=== PATIENT | female | born 1990 | race Caucasian/White ===

== ENCOUNTER → 2018-07-28 | Outpatient (CLI) | payer BC | LOC: RT 11:33 | PROVIDERS: ATTEND Internal Medicine Hematology & Oncology | DX: D49.59 Neoplasm of unspecified behavior of other genitourinary organ (principal) | CPT/HCPCS: 94060; 94726; 94729 ==

== ENCOUNTER → 2018-08-10 | Outpatient (CLI) | payer BC ==
[~2018-08-10] MED LIST: HOLD METFORMIN - RECEIVED CONTRAST 20 ML VIAL IV SCH; IOHEXOL 350 MG/ML 100 ML (OMNIPAQUE 350) VIAL IV ONE
--- NOTE | 2018-08-10 13:11 | Diagnostic Imaging Report ---
PROCEDURE: CT chest with contrast only. TECHNIQUE: Multiple contiguous axial images were obtained through the chest after administration of intravenous contrast. Auto Exposure Controls were utilized during the CT exam to meet ALARA standards for radiation dose reduction. INDICATION: Bacterial pneumonia. Study is performed for followup. COMPARISON: Correlation is made with CT chest from 07/20/2018. FINDINGS: No axillary lymphadenopathy is detected. No definite hilar or mediastinal lymphadenopathy is detected. No pericardial or pleural fluid is seen. Previously noted airspace infiltrates in right upper lobe and left lower lobe have resolved since prior CT consistent with resolving pneumonia. No new infiltrates or masses are seen. Upper abdomen is unremarkable. IMPRESSION: Resolution of right upper and left lower lobe pneumonia when compared with prior CT from 07/20/2018. Dictated by: Dictated on workstation # [id number]
== END ==
LOC: RAD 11:58
PROVIDERS: ATTEND Internal Medicine Hematology & Oncology
DX: J15.9 Unspecified bacterial pneumonia (principal); C80.1 Malignant (primary) neoplasm, unspecified
CPT/HCPCS: 71260

== ENCOUNTER 2018-08-14 12:17 | Outpatient (CLI) | payer BC ==
[~2018-08-14] VITALS: Ht 154.9 cm; Wt 90.3 kg
--- NOTE | 2018-08-14 14:44 | Diagnostic Imaging Report ---
INDICATION: post picc line placement COMPARISON: None. FINDINGS: Single frontal view of the chest demonstrates normal heart size and pulmonary vascularity. The lungs are well aerated and clear. No large pleural effusion or pneumothorax is seen. The visualized osseous structures show no acute abnormalities. Left upper extremity PICC line is seen with tip in the high SVC. IMPRESSION: 1. No acute cardiopulmonary process. 2. Left upper extremity PICC line with tip in the high SVC. Dictated by: Dictated on workstation # [id number]
--- NOTE | 2018-08-14 15:28 | Diagnostic Imaging Report ---
INDICATION: Followup PICC line. COMPARISON: Earlier same day. FINDINGS: Single frontal radiographic view of the chest was obtained and demonstrates interval advancement of left upper extremity PICC line. PICC line now appears to terminate within the right atrium. Cardiac silhouette and pulmonary vasculature are within normal limits. Lungs remain clear. There is no focal consolidation, large effusion, nor pneumothorax. Bony structures show no gross acute abnormalities. IMPRESSION: 1. Left upper extremity PICC line with tip now in the right atrium. Dictated by: Dictated on workstation # [id number]
[2018-08-14 15:45] VITALS: BP 136/82
== END 2018-08-14 15:50 | disposition home or self-care (01) ==
LOC: SDC 12:17
PROVIDERS: ATTEND Internal Medicine Hematology & Oncology
DX: C80.1 Malignant (primary) neoplasm, unspecified (principal)
CPT/HCPCS: 36569; 71045; 76937

== ENCOUNTER → 2018-09-20 | Outpatient (CLI) | payer BC | LOC: RT 16:04 | PROVIDERS: ATTEND Nurse Practitioner Adult Health | DX: C56.1 Malignant neoplasm of right ovary (principal); Z79.899 Other long term (current) drug therapy | CPT/HCPCS: 94060; 94726; 94729 ==

== ENCOUNTER 2018-10-03 18:10 | Emergency (ER) | payer BC ==
[~2018-10-03] VITALS: Ht 154.9 cm; Wt 83.9 kg
--- OUTSIDE RECORDS SUMMARY | 2018-10-03 18:16 | XMS REPORT ---
Author Author EUNICE PRINCE [facility] Address [address] [place] [address] Care Team Providers Care Jamb Cutter Name Role Phone ANGIEEUNICE Jamison Unavailable PROBLEMS Type Condition ICD9-CM Code VNU08-EW Code Onset Dates Condition Status SNOMED Code Problem Postop check V67.00 August, 0 488912378 Problem Encounter to discuss test results V65.49 Oct, 0 671754507 Problem Postop check Z09 August, 0 739496689 Problem Encounter to discuss test results Z71.2 Oct, 0 Problem Amenorrhea N91.2 Jun, 0 93561683 Problem Well woman exam with routine gynecological exam Z01.419 Oct, 0 [id number] Problem Morbid obesity with BMI of 40.0-44.9, adult 278.01 Jun, 0 577429591 Problem Other chronic pain G89.29 Active 98294394 Problem Morbid obesity with BMI of 40.0-44.9, adult E66.01 Jun, 0 709137993 Problem Acquired hypothyroidism E03.9 Active 978387923 Problem History of PCOS Z87.42 Jun, 0 87685139 Problem Amenorrhea 626.0 Jun, 0 33785512 Problem Well woman exam with routine gynecological exam V72.31 Oct, 0 769499796593418 Problem History of PCOS V13.29 Jun, 0 32065921 Problem Hyperprolactinemia E22.1 Active 101074209 ALLERGIES No Information ENCOUNTERS Encounter Location Date Diagnosis [address] [address] Jun, [address] [address] Jun, [address] [address] Jun, 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 [address] [address] Jun, [facility] [address] [address] May, [address] [address] May, Complex cyst of right ovary N83.291 ; Other chronic pain G89.29 and Pelvic and perineal pain R10.[address] [address] May, Pelvic pain R10.2 and Ovarian cyst N83.[address] [address] May, Pelvic pain R10.2 ; Ovarian cyst N83.209 ; Encounter to discuss test results Z71.2 and Hyperprolactinemia E22.[address] [address] May, [facility] [place] [address] [address] Apr, [place] [id number] [place] [address] Apr, [facility] [place] [id number] [address] Apr, [facility] [place] [id number] [address] Apr, [facility] [place] [id number] [address] Mar, [facility] [place] [address] [place] [id number] [place] [address] August, [facility] [place] [address] [address] August, IMMUNIZATIONS No Known Immunizations SOCIAL HISTORY Never Assessed REASON FOR VISIT Requests return call PLAN OF CARE VITAL SIGNS MEDICATIONS Unknown Medications RESULTS No Results PROCEDURES No Known procedures INSTRUCTIONS MEDICATIONS ADMINISTERED No Known Medications MEDICAL (GENERAL) HISTORY Type Description Date Medical History ovarian cysts Medical History elevated prolactin level Surgical History thyroidectomy Surgical History carpal tunnel release Surgical History dilatation and curettage Surgical History bone graph Surgical History colonoscopy Hospitalization History Surgery(s) only
--- OUTSIDE RECORDS SUMMARY | 2018-10-03 18:16 | XMS REPORT | Continuity of Care Document ---
Author Organization Unknown Address Unknown Allergies Active Description Code Type Severity Reaction Onset Reported/Identified Relationship to Patient Clinical Status Yes bismuth subsalicylate [id number] Drug Allergy Unknown N/A 08/08/2018 Yes oxycodone [id number] Drug Allergy Unknown N/A 08/08/2018 Medications There is no data. 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( 08/03/2018 LETICIA BANKS Ot D49.59 NEOPLASM OF UNSPECIFIED BEHAVIOR OF OTHE 08/08/2018 LETICIA BANKS Ot 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.0 BENIGN NEOPLASM OF RIGHT OVARY 08/08/2018 DARRENLETICIA Ot Z79.899 OTHER CODIFIER (CURRENT) DRUG THERAPY 08/08/2018 LETICIA BANKS N Ot Z80.1 FAMILY HISTORY OF MALIG NEOPLASM OF TRAC 08/08/2018 LETICIA BANKS N Ot Z80.6 FAMILY HISTORY OF LEUKEMIA 08/08/2018 LETICIA BANKS N Ot Z80.8 FAMILY HISTORY OF MALIGNANT NEOPLASM OF 08/08/2018 LETICIA BANKS N Ot Z90.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( 08/09/2018 LETICIA BANKS Ot D49.59 NEOPLASM OF UNSPECIFIED BEHAVIOR OF OTHE 08/10/2018 LETICIA BANKS Ot C80.1 MALIGNANT (PRIMARY) NEOPLASM, UNSPECIFIE 08/10/2018 LETICIA BANKS Ot J15.9 UNSPECIFIED BACTERIAL PNEUMONIA 08/14/2018 LETICIA BANKS N Ot C80.1 MALIGNANT (PRIMARY) NEOPLASM, UNSPECIFIE 08/15/2018 LETICIA BANKS Ot C80.1 MALIGNANT (PRIMARY) NEOPLASM, UNSPECIFIE 08/23/2018 LETICIA BANKS N Ot C80.1 MALIGNANT (PRIMARY) NEOPLASM, UNSPECIFIE 08/23/2018 LETICIA BANKS Ot J15.9 UNSPECIFIED BACTERIAL PNEUMONIA 09/25/2018 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 Results Test Result Range TSH w/ FREE T4 - 06/29/18 15:00 TSH 6.16 mIU/L NRG T4, FREE 1.0 ng/dL 0.8-1.8 T3 TOTAL - 06/29/18 15:00 T3, TOTAL 94 ng/dL 76-181 Encounters ACCT No. Visit Date/Time Discharge Status Pt. Type Provider Facility Loc./Unit Complaint [id number] 06/29/2018 13:30:00 06/29/2018 23:59:59 [facility] [id number] 06/29/2018 13:30:00 Document Registration [id number] 09/29/2018 09:50:00 09/29/2018 23:59:59 CLS Outpatient LETICIA BANKS [facility] ONC [id number] 09/20/2018 16:04:00 09/20/2018 23:59:59 CLS Outpatient YOKASTA WORKMAN [facility] RT GERM CELL TUMOR OF OVARY [id number] 08/14/2018 12:17:00 08/14/2018 15:50:00 DIS Outpatient LETICIA BANKS [facility] SDC IMMATURE TERATOMA [id number] 08/10/2018 11:58:00 08/10/2018 23:59:59 CLS Outpatient LETICIA BANKS [facility] RAD HX OF BACTERIAL PNEUMONIA,IMMATURE TERATOMA [id number] 07/28/2018 11:33:00 07/28/2018 23:59:59 CLS Outpatient LETICIA BANKS [facility] RT GERM CELL TUMOR OF OVARY
--- NOTE | 2018-10-03 18:28 | ED Chest Pain ---
General Stated Complaint: CHEST PAIN, SOB Source: patient, RN notes reviewed, old records Exam Limitations: no limitations History of Present Illness Date Seen by Provider: Oct 03, 2018 Time Seen by Provider: 18:28 Allergies and Home Medications Allergies Coded Allergies: bismuth subsalicylate (Verified Allergy, Unknown, 08/08/18) oxycodone (Verified Allergy, Unknown, 08/08/18) Past Jqhbgrn-Pnslcs-Ssofwi Hx Patient Social History Recent Foreign Travel: No Contact w/Someone Who Travel: No Physical Exam Vital Signs Vital Signs - First Documented 10/03/18 18:15 Temp 97.4 Pulse 93 Resp 18 B/P (MAP) 126/85 (99) Pulse Ox 99 O2 Delivery Room Air Capillary Refill : Height, Weight, BMI Height: 5'1.00" Weight: 199lbs. 0.0oz. 90.819969mh; BMI Method: Progress/Results/Core Measures Results/Orders Lab Results Laboratory Tests Test 10/03/18 18:40 10/03/18 19:05 Range/Units White Blood Count 5.3 4.3-11.0 10^3/uL Red Blood Count 3.33 L 4.35-5.85 10^6/uL Hemoglobin 10.4 L 11.5-16.0 G/DL Hematocrit 29 L 35-52 % Mean Corpuscular Volume 88 80-99 FL Mean Corpuscular Hemoglobin 31 25-34 PG Mean Corpuscular Hemoglobin Concent 36 32-36 G/DL Red Cell Distribution Width 15.7 H 10.0-14.5 % Platelet Count 288 130-400 10^3/uL Mean Platelet Volume 10.2 7.4-10.4 FL Neutrophils (%) (Auto) 52 42-75 % Lymphocytes (%) (Auto) 45 H 12-44 % Monocytes (%) (Auto) 2 0-12 % Eosinophils (%) (Auto) 0 0-10 % Basophils (%) (Auto) 1 0-10 % Neutrophils # (Auto) 2.7 1.8-7.8 X 10^3 Lymphocytes # (Auto) 2.4 1.0-4.0 X 10^3 Monocytes # (Auto) 0.1 0.0-1.0 X 10^3 Eosinophils # (Auto) 0.0 0.0-0.3 10^3/uL Basophils # (Auto) 0.1 0.0-0.1 10^3/uL Neutrophils % (Manual) 49 % Lymphocytes % (Manual) 37 % Monocytes % (Manual) 1 % Basophils % (Manual) 1 % Band Neutrophils 2 % Atypical Lymphocytes 10 % Hypochromasia 1+ Microcytosis 2+ D-Dimer 0.50 H 0.00-0.49 UG/ML Sodium Level 136 135-145 MMOL/L Potassium Level 2.9 L 3.6-5.0 MMOL/L Chloride Level 95 L 98-107 MMOL/L Carbon Dioxide Level 26 21-32 MMOL/L Anion Gap 15 H 5-14 MMOL/L Blood Urea Nitrogen 13 7-18 MG/DL Creatinine 0.75 0.60-1.30 MG/DL Estimat Glomerular Filtration Rate > 60 BUN/Creatinine Ratio 17 Glucose Level 126 H 70-105 MG/DL Calcium Level 9.0 8.5-10.1 MG/DL Corrected Calcium 8.8 8.5-10.1 MG/DL Magnesium Level 2.1 1.8-2.4 MG/DL Total Bilirubin 0.5 0.1-1.0 MG/DL Aspartate Amino Transf (AST/SGOT) 12 5-34 U/L Alanine Aminotransferase (ALT/SGPT) 12 0-55 U/L Alkaline Phosphatase 48 40-136 U/L Troponin T < 6 <=10 NG/L Pro-B-Type Natriuretic Peptide 23.5 <75.0 PG/ML Total Protein 7.0 6.4-8.2 GM/DL Albumin 4.2 3.2-4.5 GM/DL Group A Streptococcus Screen NEGATIVE NEGATIVE My Orders Orders - VOLODYMYR LEONE DO Cbc With Automated Diff (10/03/18 18:43) Comprehensive Metabolic Panel (10/03/18 18:43) Fibrin Degradation Products (10/03/18 18:43) Magnesium (10/03/18 18:43) Troponin T (10/03/18 18:43) Probnp Fs (10/03/18 18:43) Ekg Tracing (10/03/18 18:43) Rapid Strep A Screen (10/03/18 19:07) Thyroid Stimulating Hormone (10/03/18 19:17) Manual Differential (10/03/18 18:40) Ns Iv 1000 Ml (Sodium Chloride 0.9%) (10/03/18 20:15) Potassium Chloride (Tablet) (K Dur Table (10/03/18 20:15) Chest Pa/Lat (2 View) (10/03/18 20:08) Medications Given in ED Current Medications Medications Dose Ordered Sig/Consuelo Route Start Time Stop Time Status Last Admin Dose Admin Potassium Chloride 40 meq ONCE ONCE PO 10/03/18 20:15 10/03/18 20:16 DC 10/03/18 20:15 40 MEQ Vital Signs/I&O 10/03/18 18:15 Temp 97.4 Pulse 93 Resp 18 B/P (MAP) 126/85 (99) Pulse Ox 99 O2 Delivery Room Air Departure Impression Primary Impression: Non-cardiac chest pain Additional Impressions: Anxiety Hypokalemia Dehydration, mild Disposition: 01 HOME, SELF-CARE Condition: Improved Departure-Patient Inst. Referrals: SANNA SHAFER MD (PCP) Primary Care Physician AYDIN STARR CRNA (Family) Primary Care Physician Patient Instructions: High Potassium Diet, Anxiety, Adult (DC), Chest Pain That Is Not Caused by the Heart (DC) Scripts Clonazepam (Klonopin) 1 Mg Tablet 1 MG PO Q12H PRN for anxiety, #20 TAB 0 Refills Prov: VOLODYMYR LEONE DO 10/03/18 VOLODYMYR LEONE DO Oct 03, 2018 18:28
--- NOTE | 2018-10-03 19:15 | NUR ---
pt. reported that sometimes her thyroid causes the symptoms that she is having. this was reported to Doctor Adelita and a new order was placed.
--- NOTE | 2018-10-03 19:23 | NUR ---
pt. up to the bathroom to void.
[2018-10-03 19:26] LABS: ALANINE AMINOTRANSFERASE 12 U/L (0-55); ALKALINE PHOSPHATASE 48 U/L (40-136); BILIRUBIN,TOTAL 0.5 MG/DL (0.1-1.0); BUN/CREATININE RATIO 17; CARBON DIOXIDE 26 MMOL/L (21-32); CHLORIDE 95 MMOL/L (98-107); CREATININE SERUM 0.75 MG/DL (0.60-1.30); GFR ESTIMATED > 60; GLUCOSE 126 MG/DL (70-105); MAGNESIUM 2.1 MG/DL (1.8-2.4); POTASSIUM 2.9 MMOL/L (3.6-5.0); SODIUM 136 MMOL/L (135-145)
[2018-10-03 19:27] LABS: ALBUMIN 4.2 GM/DL (3.2-4.5)
[2018-10-03 19:28] LABS: HEMATOCRIT 29 % (35-52); HEMOGLOBIN 10.4 G/DL (11.5-16.0); LYMPHOCYTES % (AUTO) 45 % (12-44); MEAN CORPUSCULAR HEMOGLOBIN 31 PG (25-34); MEAN CORPUSCULAR HGB CONC 36 G/DL (32-36); MEAN CORPUSCULAR VOLUME 88 FL (80-99); MEAN PLATELET VOLUME 10.2 FL (7.4-10.4); PLATELET COUNT 288 10^3/uL (130-400); RED CELL DISTRIBUTION WIDTH 15.7 % (10.0-14.5); WHITE BLOOD COUNT 5.3 10^3/uL (4.3-11.0)
[2018-10-03 19:35] LABS: BASOPHILS % (AUTO) 1 % (0-10); EOSINOPHILS % (AUTO) 0 % (0-10); MONOCYTES % (AUTO) 2 % (0-12); NEUTROPHILS % (AUTO) 52 % (42-75)
[2018-10-03 19:36] LABS: BAND NEUTROPHILS 2 %; BASOPHILS # (AUTO) 0.1 10^3/uL (0.0-0.1); LYMPHOCYTES # (AUTO) 2.4 X 10^3 (1.0-4.0); LYMPHOCYTES % (MANUAL) 37 %; MONOCYTES # (AUTO) 0.1 X 10^3 (0.0-1.0); NEUTROPHILS # (AUTO) 2.7 X 10^3 (1.8-7.8); NEUTROPHILS % (MANUAL) 49 %
[2018-10-03 19:37] LABS: ATYPICAL LYMPHOCYTES 10 %; BASOPHILS % (MANUAL) 1 %; HYPOCHROMASIA 1+; MICROCYTOSIS 2+; MONOCYTES % (MANUAL) 1 %
[2018-10-03] MEDS ORDERED: KCL 20 MEQ TAB (K-DUR) PO ONE (20:15)
[2018-10-03] MEDS ORDERED: NS IV 1000 ML 1,000 ML IV SCH (20:15)
--- NOTE | 2018-10-03 20:33 | Diagnostic Imaging Report ---
INDICATION: Chest pain PA and lateral chest Heart size and pulmonary vascularity are normal. Lungs are clear. There are no effusions or pneumothoraces. IMPRESSION: Negative chest Dictated by: Dictated on workstation # [id number]
[2018-10-03] MEDS ORDERED: CLON1TAB PO (21:10)
[2018-10-03 21:12] VITALS: BP 116/75
== END 2018-10-03 21:20 | disposition home or self-care (01) ==
LOC: EDUNIT# 18:10 → ER FS 18:12
DX: R07.9 Chest pain, unspecified (principal); F41.9 Anxiety disorder, unspecified; E87.6 Hypokalemia; E86.0 Dehydration; Z88.5 Allergy status to narcotic agent; Z88.8 Allergy status to other drugs, medicaments and biological substances
CPT/HCPCS: 36415; 71046; 80053; 83735; 83880; 84443; 84484; 85007; 85027; 85379; 87430; 96360

== ENCOUNTER → 2018-10-17 | Outpatient (RCR) | payer BC, OTHER ==
[2018-08-14 16:59] LABS: BASOPHILS % (AUTO) 0 % (0-10); EOSINOPHILS # (AUTO) 0.3 10^3/uL (0.0-0.3); EOSINOPHILS % (AUTO) 2 % (0-10); HEMATOCRIT 36 % (35-52); HEMOGLOBIN 12.4 G/DL (11.5-16.0); LYMPHOCYTES # (AUTO) 2.7 X 10^3 (1.0-4.0); LYMPHOCYTES % (AUTO) 22 % (12-44); MEAN CORPUSCULAR HEMOGLOBIN 30 PG (25-34); MEAN CORPUSCULAR HGB CONC 34 G/DL (32-36); MEAN CORPUSCULAR VOLUME 87 FL (80-99); MEAN PLATELET VOLUME 10.5 FL (7.4-10.4); MONOCYTES # (AUTO) 0.7 X 10^3 (0.0-1.0); MONOCYTES % (AUTO) 6 % (0-12); NEUTROPHILS # (AUTO) 8.5 X 10^3 (1.8-7.8); NEUTROPHILS % (AUTO) 70 % (42-75); PLATELET COUNT 223 10^3/uL (130-400); RED CELL DISTRIBUTION WIDTH 12.9 % (10.0-14.5); WHITE BLOOD COUNT 12.2 10^3/uL (4.3-11.0)
[2018-08-14 17:08] LABS: ALANINE AMINOTRANSFERASE 11 U/L (0-55); ALBUMIN 3.6 GM/DL (3.2-4.5); ALKALINE PHOSPHATASE 62 U/L (40-136); BILIRUBIN,TOTAL 0.4 MG/DL (0.1-1.0); BUN/CREATININE RATIO 12; CARBON DIOXIDE 16 MMOL/L (21-32); CHLORIDE 111 MMOL/L (98-107); CREATININE SERUM 0.73 MG/DL (0.60-1.30); GFR ESTIMATED > 60; GLUCOSE 85 MG/DL (70-105); POTASSIUM 3.7 MMOL/L (3.6-5.0); SODIUM 138 MMOL/L (135-145); TOTAL PROTEIN 6.9 GM/DL (6.4-8.2)
--- NOTE | 2018-08-16 13:43 | Diagnostic Imaging Report ---
INDICATION: Post PICC line placement COMPARISON: 08/14/2018. FINDINGS: Single frontal view of the chest demonstrates normal heart size and pulmonary vascularity. The lungs are well aerated and clear. No large pleural effusion or pneumothorax is seen. The visualized osseous structures show no acute abnormalities. Left upper extremity PICC line is again identified with tip in the right atrium. IMPRESSION: 1. Right upper extremity PICC line with tip in the right atrium. 2. No acute cardiopulmonary process. Dictated by: Dictated on workstation # [id number]
[2018-08-17 12:17] LABS: BUN/CREATININE RATIO 19; CALCIUM 8.6 MG/DL (8.5-10.1); CARBON DIOXIDE 17 MMOL/L (21-32); CHLORIDE 109 MMOL/L (98-107); CREATININE SERUM 0.73 MG/DL (0.60-1.30); GFR ESTIMATED > 60; GLUCOSE 94 MG/DL (70-105); MAGNESIUM 1.9 MG/DL (1.8-2.4); POTASSIUM 3.7 MMOL/L (3.6-5.0); SODIUM 137 MMOL/L (135-145)
[2018-08-21 11:05] LABS: BASOPHILS # (AUTO) 0.1 10^3/uL (0.0-0.1); BASOPHILS % (AUTO) 1 % (0-10); EOSINOPHILS # (AUTO) 0.1 10^3/uL (0.0-0.3); EOSINOPHILS % (AUTO) 1 % (0-10); HEMATOCRIT 37 % (35-52); LYMPHOCYTES # (AUTO) 2.1 X 10^3 (1.0-4.0); LYMPHOCYTES % (AUTO) 22 % (12-44); MEAN CORPUSCULAR HEMOGLOBIN 30 PG (25-34); MEAN CORPUSCULAR HGB CONC 36 G/DL (32-36); MEAN CORPUSCULAR VOLUME 85 FL (80-99); MEAN PLATELET VOLUME 10.3 FL (7.4-10.4); MONOCYTES % (AUTO) 0 % (0-12); NEUTROPHILS # (AUTO) 7.2 X 10^3 (1.8-7.8); NEUTROPHILS % (AUTO) 77 % (42-75); PLATELET COUNT 162 10^3/uL (130-400); RED CELL DISTRIBUTION WIDTH 12.2 % (10.0-14.5); WHITE BLOOD COUNT 9.4 10^3/uL (4.3-11.0)
[2018-08-21 11:27] LABS: BUN/CREATININE RATIO 19; CALCIUM 9.2 MG/DL (8.5-10.1); CARBON DIOXIDE 22 MMOL/L (21-32); CHLORIDE 106 MMOL/L (98-107); CREATININE SERUM 0.73 MG/DL (0.60-1.30); GFR ESTIMATED > 60; GLUCOSE 91 MG/DL (70-105); MAGNESIUM 2.1 MG/DL (1.8-2.4); POTASSIUM 4.1 MMOL/L (3.6-5.0); SODIUM 135 MMOL/L (135-145)
[2018-08-28 11:14] LABS: BASOPHILS # (AUTO) 0.1 10^3/uL (0.0-0.1); BASOPHILS % (AUTO) 4 % (0-10); EOSINOPHILS % (AUTO) 1 % (0-10); HEMATOCRIT 31 % (35-52); HEMOGLOBIN 10.6 G/DL (11.5-16.0); LYMPHOCYTES # (AUTO) 1.6 X 10^3 (1.0-4.0); LYMPHOCYTES % (AUTO) 81 % (12-44); MEAN CORPUSCULAR HEMOGLOBIN 29 PG (25-34); MEAN CORPUSCULAR HGB CONC 34 G/DL (32-36); MEAN CORPUSCULAR VOLUME 86 FL (80-99); MEAN PLATELET VOLUME 9.1 FL (7.4-10.4); MONOCYTES # (AUTO) 0.2 X 10^3 (0.0-1.0); MONOCYTES % (AUTO) 11 % (0-12); NEUTROPHILS # (AUTO) 0.1 X 10^3 (1.8-7.8); NEUTROPHILS % (AUTO) 4 % (42-75); PLATELET COUNT 132 10^3/uL (130-400); RED CELL DISTRIBUTION WIDTH 11.6 % (10.0-14.5)
[2018-08-28 11:27] LABS: BUN/CREATININE RATIO 17; CALCIUM 9.4 MG/DL (8.5-10.1); CARBON DIOXIDE 21 MMOL/L (21-32); CHLORIDE 107 MMOL/L (98-107); CREATININE SERUM 0.71 MG/DL (0.60-1.30); GFR ESTIMATED > 60; GLUCOSE 89 MG/DL (70-105); MAGNESIUM 1.9 MG/DL (1.8-2.4); POTASSIUM 4.1 MMOL/L (3.6-5.0); SODIUM 139 MMOL/L (135-145)
[2018-08-31 12:17] LABS: BASOPHILS % (AUTO) 1 % (0-10); EOSINOPHILS % (AUTO) 1 % (0-10); HEMATOCRIT 33 % (35-52); HEMOGLOBIN 11.2 G/DL (11.5-16.0); LYMPHOCYTES # (AUTO) 2.4 X 10^3 (1.0-4.0); LYMPHOCYTES % (AUTO) 68 % (12-44); MEAN CORPUSCULAR HEMOGLOBIN 30 PG (25-34); MEAN CORPUSCULAR HGB CONC 34 G/DL (32-36); MEAN CORPUSCULAR VOLUME 87 FL (80-99); MEAN PLATELET VOLUME 8.5 FL (7.4-10.4); MONOCYTES # (AUTO) 0.6 X 10^3 (0.0-1.0); MONOCYTES % (AUTO) 16 % (0-12); NEUTROPHILS # (AUTO) 0.5 X 10^3 (1.8-7.8); NEUTROPHILS % (AUTO) 14 % (42-75); PLATELET COUNT 208 10^3/uL (130-400); RED CELL DISTRIBUTION WIDTH 12.5 % (10.0-14.5); WHITE BLOOD COUNT 3.5 10^3/uL (4.3-11.0)
[2018-09-04 09:35] LABS: BASOPHILS # (AUTO) 0.1 10^3/uL (0.0-0.1); BASOPHILS % (AUTO) 1 % (0-10); EOSINOPHILS % (AUTO) 1 % (0-10); HEMATOCRIT 33 % (35-52); HEMOGLOBIN 11.5 G/DL (11.5-16.0); LYMPHOCYTES # (AUTO) 2.8 X 10^3 (1.0-4.0); LYMPHOCYTES % (AUTO) 35 % (12-44); MEAN CORPUSCULAR HEMOGLOBIN 31 PG (25-34); MEAN CORPUSCULAR HGB CONC 35 G/DL (32-36); MEAN CORPUSCULAR VOLUME 90 FL (80-99); MEAN PLATELET VOLUME 8.9 FL (7.4-10.4); MONOCYTES % (AUTO) 12 % (0-12); NEUTROPHILS # (AUTO) 4.2 X 10^3 (1.8-7.8); NEUTROPHILS % (AUTO) 52 % (42-75); PLATELET COUNT 273 10^3/uL (130-400); RED CELL DISTRIBUTION WIDTH 13.9 % (10.0-14.5); WHITE BLOOD COUNT 8.1 10^3/uL (4.3-11.0)
[2018-09-04 09:54] LABS: ALANINE AMINOTRANSFERASE 16 U/L (0-55); ALKALINE PHOSPHATASE 67 U/L (40-136); BILIRUBIN,TOTAL 0.2 MG/DL (0.1-1.0); BUN/CREATININE RATIO 14; CALCIUM 9.5 MG/DL (8.5-10.1); CARBON DIOXIDE 16 MMOL/L (21-32); CHLORIDE 108 MMOL/L (98-107); CREATININE SERUM 0.87 MG/DL (0.60-1.30); GFR ESTIMATED > 60; GLUCOSE 152 MG/DL (70-105); MAGNESIUM 2.2 MG/DL (1.8-2.4); POTASSIUM 3.8 MMOL/L (3.6-5.0); SODIUM 138 MMOL/L (135-145); TOTAL PROTEIN 7.3 GM/DL (6.4-8.2)
[2018-09-12 15:18] LABS: BASOPHILS % (AUTO) 1 % (0-10); EOSINOPHILS % (AUTO) 0 % (0-10); HEMATOCRIT 34 % (35-52); HEMOGLOBIN 11.8 G/DL (11.5-16.0); LYMPHOCYTES # (AUTO) 2.3 X 10^3 (1.0-4.0); LYMPHOCYTES % (AUTO) 41 % (12-44); MEAN CORPUSCULAR HEMOGLOBIN 30 PG (25-34); MEAN CORPUSCULAR HGB CONC 35 G/DL (32-36); MEAN CORPUSCULAR VOLUME 87 FL (80-99); MEAN PLATELET VOLUME 9.8 FL (7.4-10.4); MONOCYTES # (AUTO) 0.1 X 10^3 (0.0-1.0); MONOCYTES % (AUTO) 1 % (0-12); NEUTROPHILS # (AUTO) 3.3 X 10^3 (1.8-7.8); NEUTROPHILS % (AUTO) 57 % (42-75); PLATELET COUNT 283 10^3/uL (130-400); RED CELL DISTRIBUTION WIDTH 13.9 % (10.0-14.5); WHITE BLOOD COUNT 5.7 10^3/uL (4.3-11.0)
[2018-09-12 15:37] LABS: BUN/CREATININE RATIO 17; CALCIUM 9.2 MG/DL (8.5-10.1); CARBON DIOXIDE 25 MMOL/L (21-32); CHLORIDE 106 MMOL/L (98-107); CREATININE SERUM 0.75 MG/DL (0.60-1.30); GFR ESTIMATED > 60; GLUCOSE 84 MG/DL (70-105); POTASSIUM 4.1 MMOL/L (3.6-5.0); SODIUM 138 MMOL/L (135-145)
[2018-09-18 11:15] LABS: BASOPHILS # (AUTO) 0.1 10^3/uL (0.0-0.1); BASOPHILS % (AUTO) 2 % (0-10); EOSINOPHILS % (AUTO) 1 % (0-10); HEMATOCRIT 31 % (35-52); HEMOGLOBIN 10.4 G/DL (11.5-16.0); LYMPHOCYTES # (AUTO) 1.9 X 10^3 (1.0-4.0); LYMPHOCYTES % (AUTO) 65 % (12-44); MEAN CORPUSCULAR HEMOGLOBIN 30 PG (25-34); MEAN CORPUSCULAR HGB CONC 34 G/DL (32-36); MEAN CORPUSCULAR VOLUME 90 FL (80-99); MEAN PLATELET VOLUME 9.5 FL (7.4-10.4); MONOCYTES # (AUTO) 0.3 X 10^3 (0.0-1.0); MONOCYTES % (AUTO) 9 % (0-12); NEUTROPHILS # (AUTO) 0.7 X 10^3 (1.8-7.8); NEUTROPHILS % (AUTO) 23 % (42-75); PLATELET COUNT 148 10^3/uL (130-400); RED CELL DISTRIBUTION WIDTH 14.3 % (10.0-14.5)
[2018-09-18 11:41] LABS: BUN/CREATININE RATIO 10; CALCIUM 9.3 MG/DL (8.5-10.1); CARBON DIOXIDE 21 MMOL/L (21-32); CHLORIDE 109 MMOL/L (98-107); CREATININE SERUM 0.77 MG/DL (0.60-1.30); GFR ESTIMATED > 60; GLUCOSE 111 MG/DL (70-105); MAGNESIUM 2.3 MG/DL (1.8-2.4); POTASSIUM 3.8 MMOL/L (3.6-5.0); SODIUM 140 MMOL/L (135-145)
[2018-09-25 09:07] LABS: BASOPHILS # (AUTO) 0.1 10^3/uL (0.0-0.1); BASOPHILS % (AUTO) 1 % (0-10); EOSINOPHILS # (AUTO) 0.2 10^3/uL (0.0-0.3); EOSINOPHILS % (AUTO) 3 % (0-10); HEMATOCRIT 33 % (35-52); HEMOGLOBIN 11.5 G/DL (11.5-16.0); LYMPHOCYTES # (AUTO) 2.6 X 10^3 (1.0-4.0); LYMPHOCYTES % (AUTO) 41 % (12-44); MEAN CORPUSCULAR HEMOGLOBIN 31 PG (25-34); MEAN CORPUSCULAR HGB CONC 35 G/DL (32-36); MEAN CORPUSCULAR VOLUME 91 FL (80-99); MEAN PLATELET VOLUME 9.3 FL (7.4-10.4); MONOCYTES # (AUTO) 1.2 X 10^3 (0.0-1.0); MONOCYTES % (AUTO) 19 % (0-12); NEUTROPHILS # (AUTO) 2.3 X 10^3 (1.8-7.8); NEUTROPHILS % (AUTO) 36 % (42-75); PLATELET COUNT 289 10^3/uL (130-400); RED CELL DISTRIBUTION WIDTH 16.9 % (10.0-14.5); WHITE BLOOD COUNT 6.4 10^3/uL (4.3-11.0)
[2018-09-25 09:33] LABS: ALANINE AMINOTRANSFERASE 21 U/L (0-55); ALBUMIN 4.2 GM/DL (3.2-4.5); ALKALINE PHOSPHATASE 55 U/L (40-136); BILIRUBIN,TOTAL 0.3 MG/DL (0.1-1.0); BUN/CREATININE RATIO 15; CALCIUM 9.9 MG/DL (8.5-10.1); CARBON DIOXIDE 24 MMOL/L (21-32); CHLORIDE 105 MMOL/L (98-107); CREATININE SERUM 0.81 MG/DL (0.60-1.30); GFR ESTIMATED > 60; GLUCOSE 90 MG/DL (70-105); MAGNESIUM 2.3 MG/DL (1.8-2.4); POTASSIUM 4.3 MMOL/L (3.6-5.0); SODIUM 139 MMOL/L (135-145); TOTAL PROTEIN 7.4 GM/DL (6.4-8.2)
[~2018-10-17] VITALS: Ht 158.1 cm; Wt 87.5 kg
[~2018-10-17] MED LIST changes: +ACETAMINOPHEN 500 MG TAB (TYLENOL) CANCER CTR ONE; +ALTEPLASE 2 MG (CATHFLO) CANCER CENTER IV ONE; +BLEOMYCIN IV SCH; +CISPLATIN IV SCH; +CLON1TAB PO; +ETOPOSIDE IV SCH; +FAMOTIDINE 20MG/2ML IV (CANCER CTR) IV SCH; +FOSAPREPITANT DIMEGLUMINE 150 MG in NS (IVPB) CANCER CENTER ONLY 150 ML IV SCH; -HOLD METFORMIN - RECEIVED CONTRAST 20 ML VIAL IV SCH; -IOHEXOL 350 MG/ML 100 ML (OMNIPAQUE 350) VIAL IV ONE; +LORazepam INJ 2 MG/ML VIAL CANCER CTR IV SCH; +MAGNESIUM SULFATE IV SCH; +MANNITOL IV SCH; +NORMAL SALINE IV SCH; +NS (IVPB) CANCER CENTER 250 ML ONE; +NS IV 1000 ML (CANCER CTR) IV SCH; +NS IV 500 ML (CANCER CENTER) 500 ML ONE; +NS IV SCH; +ONDANSETRON MDV (CANCER CENTER 16 MG, DEXAMETHASONE INJECTION 10 MG in NS (IVPB) CANCER... IV SCH; +ONDANSETRON MDV (CANCER CENTER 8 MG, DEXAMETHASONE INJ (CANCER CTR) 4 MG in NS (IVPB) C... IV SCH; +PALONOSETRON HCL 0.25 MG, DEXAMETHASONE INJECTION 10 MG in NS (IVPB) CANCER CENTER 50 ML IV SCH; +[UNRECOGNIZED DRUG - OTHER] IV SCH
[2018-10-17 09:12] LABS: BASOPHILS % (AUTO) 0 % (0-10); EOSINOPHILS # (AUTO) 0.1 10^3/uL (0.0-0.3); EOSINOPHILS % (AUTO) 1 % (0-10); HEMATOCRIT 31 % (35-52); HEMOGLOBIN 10.3 G/DL (11.5-16.0); LYMPHOCYTES # (AUTO) 1.8 X 10^3 (1.0-4.0); LYMPHOCYTES % (AUTO) 35 % (12-44); MEAN CORPUSCULAR HEMOGLOBIN 31 PG (25-34); MEAN CORPUSCULAR HGB CONC 33 G/DL (32-36); MEAN CORPUSCULAR VOLUME 93 FL (80-99); MEAN PLATELET VOLUME 8.9 FL (7.4-10.4); MONOCYTES # (AUTO) 0.9 X 10^3 (0.0-1.0); MONOCYTES % (AUTO) 19 % (0-12); NEUTROPHILS # (AUTO) 2.3 X 10^3 (1.8-7.8); NEUTROPHILS % (AUTO) 45 % (42-75); PLATELET COUNT 340 10^3/uL (130-400); RED CELL DISTRIBUTION WIDTH 18.7 % (10.0-14.5); WHITE BLOOD COUNT 5.1 10^3/uL (4.3-11.0)
[2018-10-17 09:42] LABS: ALANINE AMINOTRANSFERASE 26 U/L (0-55); ALBUMIN 4.3 GM/DL (3.2-4.5); ALKALINE PHOSPHATASE 64 U/L (40-136); BILIRUBIN,TOTAL 0.3 MG/DL (0.1-1.0); BUN/CREATININE RATIO 9; CALCIUM 9.8 MG/DL (8.5-10.1); CARBON DIOXIDE 26 MMOL/L (21-32); CHLORIDE 106 MMOL/L (98-107); CREATININE SERUM 0.88 MG/DL (0.60-1.30); GFR ESTIMATED > 60; GLUCOSE 88 MG/DL (70-105); POTASSIUM 3.7 MMOL/L (3.6-5.0); SODIUM 140 MMOL/L (135-145); TOTAL PROTEIN 7.4 GM/DL (6.4-8.2)
[2018-10-17 10:08] LABS: ALANINE AMINOTRANSFERASE 24 U/L (0-55); ALBUMIN 4.3 GM/DL (3.2-4.5); ALKALINE PHOSPHATASE 65 U/L (40-136); BILIRUBIN,TOTAL 0.3 MG/DL (0.1-1.0); BUN/CREATININE RATIO 11; CALCIUM 9.9 MG/DL (8.5-10.1); CARBON DIOXIDE 26 MMOL/L (21-32); CHLORIDE 106 MMOL/L (98-107); CREATININE SERUM 0.85 MG/DL (0.60-1.30); GFR ESTIMATED > 60; GLUCOSE 87 MG/DL (70-105); MAGNESIUM 2.3 MG/DL (1.8-2.4); POTASSIUM 3.7 MMOL/L (3.6-5.0); SODIUM 140 MMOL/L (135-145); TOTAL PROTEIN 7.6 GM/DL (6.4-8.2)
== END | disposition home or self-care (01) ==
LOC: ONC 07-17 14:51
PROVIDERS: ATTEND Internal Medicine Hematology & Oncology
DX: D27.0 Benign neoplasm of right ovary (principal); Z90.79 Acquired absence of other genital organ(s); Z80.1 Family history of malignant neoplasm of trachea, bronchus and lung; Z80.6 Family history of leukemia; Z80.8 Family history of malignant neoplasm of other organs or systems; Z79.899 Other long term (current) drug therapy
CPT/HCPCS: 36415; 36591; 71045; 80048; 80053; 82105; 82232; 83615; 83735; 84443; 84702; 84703; 85025; 96367; 96375; 96409; 96411; 96413; 96417; 99213

== ENCOUNTER 2019-01-25 09:54 | Outpatient (RCR) | payer SELFPAY ==
[~2019-01-25 09:54] MED LIST changes: -ACETAMINOPHEN 500 MG TAB (TYLENOL) CANCER CTR ONE; -ALTEPLASE 2 MG (CATHFLO) CANCER CENTER IV ONE; -BLEOMYCIN IV SCH; -CISPLATIN IV SCH; -ETOPOSIDE IV SCH; -FAMOTIDINE 20MG/2ML IV (CANCER CTR) IV SCH; -FOSAPREPITANT DIMEGLUMINE 150 MG in NS (IVPB) CANCER CENTER ONLY 150 ML IV SCH; -LORazepam INJ 2 MG/ML VIAL CANCER CTR IV SCH; -MAGNESIUM SULFATE IV SCH; -MANNITOL IV SCH; -NORMAL SALINE IV SCH; -NS (IVPB) CANCER CENTER 250 ML ONE; -NS IV 1000 ML (CANCER CTR) IV SCH; -NS IV 500 ML (CANCER CENTER) 500 ML ONE; -NS IV SCH; -ONDANSETRON MDV (CANCER CENTER 16 MG, DEXAMETHASONE INJECTION 10 MG in NS (IVPB) CANCER... IV SCH; -ONDANSETRON MDV (CANCER CENTER 8 MG, DEXAMETHASONE INJ (CANCER CTR) 4 MG in NS (IVPB) C... IV SCH; -PALONOSETRON HCL 0.25 MG, DEXAMETHASONE INJECTION 10 MG in NS (IVPB) CANCER CENTER 50 ML IV SCH; -[UNRECOGNIZED DRUG - OTHER] IV SCH
[2019-01-25 10:09] LABS: BASOPHILS % (AUTO) 0 % (0-10); EOSINOPHILS # (AUTO) 0.1 10^3/uL (0.0-0.3); EOSINOPHILS % (AUTO) 1 % (0-10); HEMATOCRIT 42 % (35-52); HEMOGLOBIN 14.2 G/DL (11.5-16.0); LYMPHOCYTES # (AUTO) 2.3 X 10^3 (1.0-4.0); LYMPHOCYTES % (AUTO) 31 % (12-44); MEAN CORPUSCULAR HEMOGLOBIN 30 PG (25-34); MEAN CORPUSCULAR HGB CONC 34 G/DL (32-36); MEAN CORPUSCULAR VOLUME 87 FL (80-99); MEAN PLATELET VOLUME 10.1 FL (7.4-10.4); MONOCYTES # (AUTO) 0.7 X 10^3 (0.0-1.0); MONOCYTES % (AUTO) 9 % (0-12); NEUTROPHILS # (AUTO) 4.3 X 10^3 (1.8-7.8); NEUTROPHILS % (AUTO) 58 % (42-75); PLATELET COUNT 178 10^3/uL (130-400); RED CELL DISTRIBUTION WIDTH 13.1 % (10.0-14.5); WHITE BLOOD COUNT 7.5 10^3/uL (4.3-11.0)
[2019-01-25 10:35] LABS: ALANINE AMINOTRANSFERASE 17 U/L (0-55); ALBUMIN 4.2 GM/DL (3.2-4.5); ALKALINE PHOSPHATASE 70 U/L (40-136); BILIRUBIN,TOTAL 0.4 MG/DL (0.1-1.0); BUN/CREATININE RATIO 13; CALCIUM 9.5 MG/DL (8.5-10.1); CARBON DIOXIDE 25 MMOL/L (21-32); CHLORIDE 107 MMOL/L (98-107); GFR ESTIMATED > 60; GLUCOSE 84 MG/DL (70-105); SODIUM 139 MMOL/L (135-145); TOTAL PROTEIN 7.6 GM/DL (6.4-8.2)
== END 2019-04-25 | disposition home or self-care (01) ==
LOC: ONC 09:54
PROVIDERS: ATTEND Internal Medicine Hematology & Oncology
DX: D27.0 Benign neoplasm of right ovary (principal); E03.9 Hypothyroidism, unspecified; A15.9 Respiratory tuberculosis unspecified; Z90.79 Acquired absence of other genital organ(s); Z80.1 Family history of malignant neoplasm of trachea, bronchus and lung; Z80.8 Family history of malignant neoplasm of other organs or systems; Z79.899 Other long term (current) drug therapy; Z80.6 Family history of leukemia
CPT/HCPCS: 36415; 80053; 82105; 83615; 84702; 85025; 99213